=== PATIENT | male | born 2000 | race Caucasian/White ===

== ENCOUNTER 2022-08-30 09:12 | Emergency (ER) | payer OTHER ==
[~2022-08-30] VITALS: Ht 167.6 cm; Wt 91.0 kg
[2022-08-30] MEDS ORDERED: MOTRIN400 MG/TAB PO (10:56)
[2022-08-30 11:07] VITALS: BP 133/77
== END 2022-08-30 11:11 | disposition home or self-care (01) | DRG 563 ==
LOC: ED 09:12
PROC: 2W3FX1Z Immobilization of Left Hand using Splint (ICD-10-PCS; principal; 2022-08-30)
DX: S62.305A Unspecified fracture of fourth metacarpal bone, left hand, initial encounter for closed fracture (principal); W20.8XXA Other cause of strike by thrown, projected or falling object, initial encounter; Y93.89 Activity, other specified; Y92.009 Unspecified place in unspecified non-institutional (private) residence as the place of occurrence of the external cause